=== PATIENT | female | born 1970 | race Caucasian/White ===

== ENCOUNTER 2022-07-14 20:08 | Inpatient (IN) ==
[2022-07-14] MEDS ORDERED: ONDANSETRON 4 MG/2 ML VIAL IV PRN (22:07)
[2022-07-14] MEDS ORDERED: ZALEPLON 5 MG CAPSULE PO PRN (22:07)
[2022-07-14] MEDS ORDERED: GLUCAGON 1 MG VIAL IM PRN (22:07)
[2022-07-14] MEDS ORDERED: ALBUTEROL/IPRATROPIUM 3 ML NEB RESP TX PRN (22:07)
[2022-07-14] MEDS ORDERED: NICOTINE 21 MG/24 HR PATCH TRANSDERM PRN (22:07)
[2022-07-14] MEDS ORDERED: diphenhydrAMINE CAP 25 MG CAPSULE PO PRN (22:07)
[2022-07-14] MEDS ORDERED: DEXTROSE 10% 250 ML BAG IV PRN (22:07)
[2022-07-14] MEDS ORDERED: guaiFENesin/DM ER 600-30 MG TABLET PO PRN (22:07)
[2022-07-14 22:38] LABS: Basophils % 0.2 % (0.0-0.8); Eosinophils % 0.2 % (0.00-10.9); Hematocrit 40.1 VOL% (35.7-47.0); Hemoglobin 13.1 GM/DL (12.0-16.0); Immature Granulocytes % 0.6 %; Immature Granulocytes Absolute 0.06 #; Lymphocytes # 0.9 10*3/uL (1.4-4.0); Lymphocytes % 8.5 % (21.3-54.2); Mean Corpuscular HGB Conc 32.7 GM/DL (32-36); Mean Corpuscular Volume 86.4 FL (87-102); Mean Platelet Volume 10.3 FL (9.6-12.0); Monocytes # 0.6 10*3/uL (0.11-0.8); Monocytes % 5.6 % (1.7-12.7); Neutrophils % 84.9 % (38.7-73.9); Platelet Count 309 T/CUMM (130-400); Red Blood Count 4.64 MC/CUMM (3.8-5.5); Red Cell Distribution Width 15.3 % (9.3-17.3); White Blood Count 10.3 T/CUMM (4-12)
[2022-07-14 22:53] LABS: Calcium 9.8 MG/DL (8.5-10.1); Osmolality,Calculated 272.8 MOS/KG (273-304); Potassium 3.9 MMOL/L (3.5-5.1)
[2022-07-14 23:39] LABS: Albumin 3.6 G/DL (3.4-5.0); Bilirubin,Direct 6.11 MG/DL (0.0-0.20); Bilirubin,Indirect 1.1 MG/DL (0.0-1.0); Bilirubin,Total 7.2 MG/DL (0.20-1.00); Total Protein 7.2 G/DL (6.4-8.2)
[2022-07-15] MEDS: metroNIDAZOLE INJ 500 MG/100 ML PREMIX IV SCH ×4 (00:13→23:42)
[2022-07-15] MEDS: DEXTROSE 5% NACL 0.9% 1,000 ML IV SCH ×2 (00:13→15:44)
[2022-07-15] MEDS: cefTRIAXone 1,000 MG in SODIUM CHLORIDE 0.9% 100 ML IV SCH ×2 (00:14→23:45)
[2022-07-15] MEDS: MORPHINE 2 MG/1 ML SYRINGE IV PRN ×4 (01:48→21:09)
[2022-07-15 05:09] LABS: Basophils % 0.3 % (0.0-0.8); Eosinophils % 0.2 % (0.00-10.9); Hematocrit 37.3 VOL% (35.7-47.0); Hemoglobin 12.2 GM/DL (12.0-16.0); Immature Granulocytes % 0.6 %; Immature Granulocytes Absolute 0.06 #; Lymphocytes # 0.9 10*3/uL (1.4-4.0); Lymphocytes % 9.5 % (21.3-54.2); Mean Corpuscular HGB Conc 32.7 GM/DL (32-36); Mean Corpuscular Volume 85.6 FL (87-102); Mean Platelet Volume 11.1 FL (9.6-12.0); Monocytes # 0.5 10*3/uL (0.11-0.8); Monocytes % 5.4 % (1.7-12.7); Platelet Count 295 T/CUMM (130-400); Red Blood Count 4.36 MC/CUMM (3.8-5.5); Red Cell Distribution Width 15.2 % (9.3-17.3); White Blood Count 9.9 T/CUMM (4-12)
[2022-07-15 05:26] LABS: Bilirubin,Total 6.5 MG/DL (0.20-1.00); Calcium 9.2 MG/DL (8.5-10.1); Osmolality,Calculated 277.5 MOS/KG (273-304); Potassium 3.2 MMOL/L (3.5-5.1); Total Protein 6.8 G/DL (6.4-8.2)
[2022-07-15 08:36] LABS: Hepatitis B Core IgM Quant 0.15 Index; Hepatitis B Surface Ag Quant < 0.10 Index; Hepatitis B Surface Ag Result Non-Reactive (NonReactive); Hepatitis C Virus Ab Quant 0.05 Index; Hepatitis C Virus Ab Result Non-Reactive (NonReactive)
[2022-07-15] MEDS ORDERED: POTASSIUM CHLORIDE 20 MEQ TABLET PO ONE (08:37)
[2022-07-15] MEDS: PANTOPRAZOLE 40 MG VIAL IV SCH (09:11)
[2022-07-15] MEDS ORDERED: amLODIPine 5 MG TABLET PO SCH (11:00)
[2022-07-15] MEDS: lisinopriL 10 MG TABLET PO SCH (12:20)
[2022-07-16 05:43] LABS: Basophils % 0.4 % (0.0-0.8); Eosinophils # 0.2 10*3/uL (0.0-0.87); Eosinophils % 2.3 % (0.00-10.9); Hematocrit 37.3 VOL% (35.7-47.0); Hemoglobin 12.2 GM/DL (12.0-16.0); Immature Granulocytes % 0.6 %; Immature Granulocytes Absolute 0.06 #; Lymphocytes # 1.2 10*3/uL (1.4-4.0); Mean Corpuscular HGB Conc 32.7 GM/DL (32-36); Mean Corpuscular Volume 86.3 FL (87-102); Mean Platelet Volume 10.9 FL (9.6-12.0); Monocytes # 0.7 10*3/uL (0.11-0.8); Monocytes % 6.8 % (1.7-12.7); Neutrophils % 77.9 % (38.7-73.9); Platelet Count 300 T/CUMM (130-400); Red Blood Count 4.32 MC/CUMM (3.8-5.5); Red Cell Distribution Width 15.9 % (9.3-17.3); White Blood Count 9.6 T/CUMM (4-12)
[2022-07-16 06:10] LABS: Albumin 2.7 G/DL (3.4-5.0); Bilirubin,Total 5.9 MG/DL (0.20-1.00); Calcium 9.4 MG/DL (8.5-10.1); Osmolality,Calculated 279.4 MOS/KG (273-304); Potassium 3.7 MMOL/L (3.5-5.1); Total Protein 6.6 G/DL (6.4-8.2)
[2022-07-16] MEDS: DEXTROSE 5% NACL 0.9% 1,000 ML IV SCH ×2 (08:19→16:18)
[2022-07-16] MEDS: metroNIDAZOLE INJ 500 MG/100 ML PREMIX IV SCH ×3 (08:20→23:07)
[2022-07-16] MEDS: PANTOPRAZOLE 40 MG VIAL IV SCH (08:22)
[2022-07-16] MEDS: MORPHINE 2 MG/1 ML SYRINGE IV PRN ×3 (08:22→22:06)
[2022-07-16] MEDS: lisinopriL 10 MG TABLET PO SCH (08:22)
[2022-07-16] MEDS: cefTRIAXone 1,000 MG in SODIUM CHLORIDE 0.9% 100 ML IV SCH (23:52)
[2022-07-17] MEDS: DEXTROSE 5% NACL 0.9% 1,000 ML IV SCH ×3 (04:06→23:21)
[2022-07-17 05:46] LABS: Basophils % 0.5 % (0.0-0.8); Eosinophils # 0.2 10*3/uL (0.0-0.87); Eosinophils % 2.8 % (0.00-10.9); Hematocrit 36.3 VOL% (35.7-47.0); Hemoglobin 11.6 GM/DL (12.0-16.0); Immature Granulocytes % 0.9 %; Immature Granulocytes Absolute 0.08 #; Lymphocytes % 10.9 % (21.3-54.2); Mean Corpuscular Volume 86.8 FL (87-102); Monocytes # 0.7 10*3/uL (0.11-0.8); Monocytes % 7.5 % (1.7-12.7); Neutrophils % 77.4 % (38.7-73.9); Platelet Count 296 T/CUMM (130-400); Red Blood Count 4.18 MC/CUMM (3.8-5.5); Red Cell Distribution Width 16.3 % (9.3-17.3); White Blood Count 8.7 T/CUMM (4-12)
[2022-07-17 05:51] LABS: INR 1.2; PT Patient Result 12.7 SECS (10.1-12.1)
[2022-07-17 06:01] LABS: Albumin 2.5 G/DL (3.4-5.0); Bilirubin,Total 6.8 MG/DL (0.20-1.00); Calcium 9.1 MG/DL (8.5-10.1); Osmolality,Calculated 280.4 MOS/KG (273-304); Potassium 3.9 MMOL/L (3.5-5.1); Total Protein 6.2 G/DL (6.4-8.2)
[2022-07-17 06:03] LABS: Risk Ratio 12.44; VLDL Cholesterol 16.2 MG/DL
[2022-07-17] MEDS ORDERED: INDOMETHACIN SUPP 50 MG SUPP RECTAL ONE (06:27)
[2022-07-17] MEDS ORDERED: propofoL 200 MG/20 ML VIAL IV ONE (07:38)
[2022-07-17] MEDS ORDERED: ROCURONIUM 50 MG/5 ML VIAL IV ONE (07:38)
[2022-07-17] MEDS ORDERED: SUCCINYLCHOLINE 200 MG/10 ML VIAL ONE (07:38)
[2022-07-17] MEDS ORDERED: SEVOFLURANE 1 UNIT/15 MINUTE INH ONE (07:38)
[2022-07-17] MEDS ORDERED: fentaNYL 100 MCG/2 ML VIAL ONE (07:38)
[2022-07-17] MEDS ORDERED: ONDANSETRON 4 MG/2 ML VIAL ONE (07:38)
[2022-07-17] MEDS ORDERED: LIDOCAINE 2% 5 ML VIAL ONE (07:38)
[2022-07-17] MEDS ORDERED: MIDAZOLAM 2 MG/2 ML VIAL ONE (07:38)
[2022-07-17] MEDS: metroNIDAZOLE INJ 500 MG/100 ML PREMIX IV SCH ×3 (07:39→23:21)
[2022-07-17] MEDS ORDERED: SUGAMMADEX 200 MG/2 ML VIAL IV ONE (07:43)
[2022-07-17] MEDS: LACTATED RINGERS 1,000 ML IV SCH ×2 (08:35→10:19)
[2022-07-17] MEDS ORDERED: DEXAMETHASONE 4 MG/1 ML VIAL ONE (09:15)
[2022-07-17] MEDS ORDERED: GLYCOPYRROLATE 0.4 MG/2 ML VIAL ONE (09:19)
[2022-07-17] MEDS ORDERED: ePHEDrine 50 MG/ML VIAL ONE (09:24)
[2022-07-17] MEDS: PANTOPRAZOLE 40 MG VIAL IV SCH (11:12)
[2022-07-17] MEDS: lisinopriL 10 MG TABLET PO SCH (11:12)
[2022-07-17] MEDS: hydrALAZINE 20 MG/1 ML VIAL IV PRN (16:10)
[2022-07-17] MEDS: cefTRIAXone 1,000 MG in SODIUM CHLORIDE 0.9% 100 ML IV SCH (23:21)
[2022-07-18 05:26] LABS: Basophils % 0.4 % (0.0-0.8); Eosinophils # 0.1 10*3/uL (0.0-0.87); Eosinophils % 1.2 % (0.00-10.9); Hematocrit 32.5 VOL% (35.7-47.0); Hemoglobin 10.6 GM/DL (12.0-16.0); Immature Granulocytes % 0.8 %; Immature Granulocytes Absolute 0.07 #; Lymphocytes # 1.7 10*3/uL (1.4-4.0); Lymphocytes % 19.4 % (21.3-54.2); Mean Corpuscular HGB Conc 32.6 GM/DL (32-36); Mean Corpuscular Volume 87.6 FL (87-102); Mean Platelet Volume 11.3 FL (9.6-12.0); Monocytes # 0.5 10*3/uL (0.11-0.8); Monocytes % 5.7 % (1.7-12.7); Neutrophils % 72.5 % (38.7-73.9); Platelet Count 287 T/CUMM (130-400); Red Blood Count 3.71 MC/CUMM (3.8-5.5); Red Cell Distribution Width 16.3 % (9.3-17.3); White Blood Count 8.5 T/CUMM (4-12)
[2022-07-18 05:47] LABS: Albumin 2.3 G/DL (3.4-5.0); Bilirubin,Total 2.3 MG/DL (0.20-1.00); Calcium 8.8 MG/DL (8.5-10.1); Osmolality,Calculated 288.8 MOS/KG (273-304); Potassium 3.7 MMOL/L (3.5-5.1); Total Protein 5.8 G/DL (6.4-8.2)
[2022-07-18] MEDS: metroNIDAZOLE INJ 500 MG/100 ML PREMIX IV SCH ×3 (06:04→23:40)
[2022-07-18] MEDS ORDERED: INDOCYANINE GREEN 25 MG VIAL IV ONE (06:30)
[2022-07-18] MEDS: lisinopriL 10 MG TABLET PO SCH (09:13)
[2022-07-18] MEDS: PANTOPRAZOLE 40 MG VIAL IV SCH (09:14)
[2022-07-18] MEDS: LACTATED RINGERS 1,000 ML IV SCH (09:38)
[2022-07-18] MEDS ORDERED: MIDAZOLAM 2 MG/2 ML VIAL ONE (09:47)
[2022-07-18] MEDS ORDERED: LIDOCAINE 2% 5 ML VIAL ONE (09:47)
[2022-07-18] MEDS ORDERED: ROCURONIUM 50 MG/5 ML VIAL IV ONE (09:47)
[2022-07-18] MEDS ORDERED: fentaNYL 100 MCG/2 ML VIAL ONE ×2 (09:47→10:59)
[2022-07-18] MEDS ORDERED: propofoL 200 MG/20 ML VIAL IV ONE (09:47)
[2022-07-18] MEDS ORDERED: SUCCINYLCHOLINE 200 MG/10 ML VIAL ONE (09:47)
[2022-07-18] MEDS ORDERED: ePHEDrine 50 MG/ML VIAL ONE (10:36)
[2022-07-18] MEDS ORDERED: GLYCOPYRROLATE 0.4 MG/2 ML VIAL ONE ×2 (10:38→11:53)
[2022-07-18] MEDS ORDERED: ceFAZolin 1,000 MG VIAL ONE (10:51)
[2022-07-18] MEDS ORDERED: METOPROLOL TARTRATE 5 MG/5 ML VIAL IV ONE (11:09)
[2022-07-18] MEDS ORDERED: NEOSTIGMINE 10 MG/10 ML VIAL ONE (11:53)
[2022-07-18] MEDS ORDERED: hydrALAZINE 20 MG/1 ML VIAL IV ONE (12:20)
[2022-07-18] MEDS: DEXTROSE 5% NACL 0.9% 1,000 ML IV SCH (12:51)
[2022-07-18] MEDS ORDERED: TISSUE ADHESIVE 1 EACH APPLICATOR TOP ONE (13:07)
[2022-07-18] MEDS: cefTRIAXone 1,000 MG in SODIUM CHLORIDE 0.9% 100 ML IV SCH (23:40)
[2022-07-19] MEDS: DEXTROSE 5% NACL 0.9% 1,000 ML IV SCH (03:42)
[2022-07-19] MEDS: hydrALAZINE 20 MG/1 ML VIAL IV PRN (04:42)
[2022-07-19 05:35] LABS: Basophils # 0.1 10*3/uL (0.0-0.2); Basophils % 0.8 % (0.0-0.8); Eosinophils # 0.2 10*3/uL (0.0-0.87); Eosinophils % 1.7 % (0.00-10.9); Hemoglobin 11.3 GM/DL (12.0-16.0); Immature Granulocytes % 0.8 %; Immature Granulocytes Absolute 0.07 #; Lymphocytes # 1.7 10*3/uL (1.4-4.0); Lymphocytes % 19.5 % (21.3-54.2); Mean Corpuscular HGB Conc 32.3 GM/DL (32-36); Mean Corpuscular Volume 89.1 FL (87-102); Mean Platelet Volume 10.9 FL (9.6-12.0); Monocytes # 0.6 10*3/uL (0.11-0.8); Monocytes % 6.7 % (1.7-12.7); Neutrophils % 70.5 % (38.7-73.9); Platelet Count 331 T/CUMM (130-400); Red Blood Count 3.93 MC/CUMM (3.8-5.5); White Blood Count 8.8 T/CUMM (4-12)
[2022-07-19 06:00] LABS: Albumin 2.4 G/DL (3.4-5.0); Bilirubin,Total 1.9 MG/DL (0.20-1.00); Calcium 8.7 MG/DL (8.5-10.1); Potassium 3.8 MMOL/L (3.5-5.1); Total Protein 6.2 G/DL (6.4-8.2)
[2022-07-19] MEDS: metroNIDAZOLE INJ 500 MG/100 ML PREMIX IV SCH (06:00)
[2022-07-19] MEDS: PANTOPRAZOLE 40 MG VIAL IV SCH (08:08)
[2022-07-19] MEDS: lisinopriL 10 MG TABLET PO SCH (08:08)
[2022-07-19 08:15] VITALS: BP 181/84
== END 2022-07-19 10:31 | disposition home or self-care (01) | DRG 418 ==
LOC: SUATTDRO 21:24 → N.3E 21:24
PROVIDERS: ADMIT Internal Medicine; ATTEND Internal Medicine
PROC: ERCPWSP (ICD-10-PCS; 2022-07-17 08:35)